=== PATIENT | female | born 1955 | race American Indian/Alaskan Native ===

== ENCOUNTER → 2025-02-14 08:34 | Outpatient (REF) | payer MEDICAID, SELFPAY ==
[2025-02-14 09:53] LABS: Hematocrit 33.6 % (37.0-47.0); Hemoglobin 11.4 g/dL (12.0-16.0); Mean Corp Hgb Conc. 33.9 g/dL (33.0-37.0); Mean Corpuscular Volume 88.2 fL (81.0-99.0); Nucleated Red Blood Cells % 0 %; Platelet Count 165 10^3/uL (130-400); Red Cell Dist. Width 12.0 % (11.5-14.5)
[2025-02-14 10:13] LABS: Microalb - Urine Creatinine 37.400 mg/dl
[2025-02-14 10:22] LABS: ALT (SGPT) 28 U/L (0-35); AST (SGOT) 31 U/L (14-36); Albumin 4.0 g/dl (3.5-5.0); Alkaline Phosphatase 46 U/L (38-126); Blood Urea Nitrogen 34 mg/dl (7-17); Calcium 9.9 mg/dl (8.4-10.2); Carbon Dioxide 24 mmol/L (22-30); Chloride 102 mmol/L (98-107); Glucose 93 mg/dl (70-99); HDL Cholesterol 53 mg/dl; LDL Cholesterol, Calculated 153 mg/dl; Potassium 4.3 mmol/L (3.5-5.1); Sodium 133 mmol/L (135-145); Total Protein 6.7 g/dl (6.3-8.2); Very Low Density Lipoprotein 36 mg/dl (0-30); eGFR 28.23
[2025-02-14 10:52] LABS: Glycohemoglobin (HgbA1c) 5.6 % (4.0-5.6)
[2025-02-14 12:24] LABS: Microalbumin, Random Urine > 38.0 mg/dl (0.6-1.7)
== END ==
LOC: RAD 08:34
PROVIDERS: ATTENDING PHYSICIAN Family Medicine
DX: M25.562 Pain in left knee (principal); M25.561 Pain in right knee; G89.29 Other chronic pain; E11.621 Type 2 diabetes mellitus with foot ulcer; L97.509 Non-pressure chronic ulcer of other part of unspecified foot with unspecified severity; Z87.898 Personal history of other specified conditions
CPT/HCPCS: 36415; 73564; 80053; 80061; 82043; 82570; 83036; 84443; 85025

== ENCOUNTER → 2025-02-21 08:25 | Outpatient (REF) | payer MEDICAID, SELFPAY | LOC: RCS 08:25 | PROVIDERS: ATTENDING PHYSICIAN Family Medicine | DX: I10 Essential (primary) hypertension (principal); R01.1 Cardiac murmur, unspecified | CPT/HCPCS: 93306 ==